=== PATIENT | male | born 1950 | race Caucasian/White ===

== ENCOUNTER 2017-01-09 05:35 | Outpatient (CLI) | payer MEDICARE, OTHER ==
[~2017-01-09] VITALS: Ht 175.3 cm; Wt 96.3 kg
[~2017-01-09 05:35] MED LIST: BENA1TAB3 PO; IBP200T PO
[2017-01-09] MEDS ORDERED: BENA1TAB57 PO (12:12)
== END 2017-01-09 12:17 ==
LOC: PREOP 05:35
PROVIDERS: ATTEND Surgery
DX: Z01.818 Encounter for other preprocedural examination (principal); Z12.11 Encounter for screening for malignant neoplasm of colon; Z86.010 Personal history of colon polyps

== ENCOUNTER 2017-01-11 11:39 | Day surgery (SDC) | payer MEDICARE, OTHER ==
[~2017-01-11] VITALS: Ht 175.3 cm; Wt 96.3 kg
[~2017-01-11 11:39] MED LIST changes: +BENA1TAB57 PO
--- OUTSIDE RECORDS SUMMARY | 2017-01-11 11:50 | XMS REPORT | Clinical Summary ---
Author Author User, [employer] Kaylee Benoit DO, FACP Address Unknown Phone Allergies, Adverse Reactions, Alerts Allergy Name Reaction Description Start Date Severity Status Provider No Known Allergies Kaylee Benoit Conditions or Problems Problem Name Problem Code Onset Date Status Entry Date Provider Comment Standard Description Annotate HYPERTENSION 401.1 Active Kaylee Benoit Benign essential hypertension WEIGHT GAIN, ABNORMAL 783.1 Active Kaylee Benoit Abnormal weight gain OTHER PULMONARY EMBOLISM AND INFARCTION 415.19 Active Kaylee Benoit Other pulmonary embolism and infarction HEALTH SCREENING V70.0 Active Kaylee Benoit Routine general medical examination at a health care facility Medication List Medication Instructions Start Date Stop Date Generic Name NDC Status Provider Patient Instruction LOTENSIN HCT 20-12.5 MG TABS 1 PO DAILY BENAZEPRIL- HYDROCHLOROTHIAZIDE [id number] Active Kaylee Benoit Vital Signs Date Name Value Unit Range Description blood pressure, diastolic - 8462-4 90 mm[Hg] BP walsh blood pressure, systolic - 8480-6 151 mm[Hg] BP sys height E&M - 8302-2 60 [in_us] Bdy height pulse rate E&M - 8867-4 80 /min Heart rate respiratory rate E&M - 9279-1 14 /min Resp rate temperature E&M 98.6 [degF] Body temperature weight E&M - 3141-9 211 [lb_av] Weight Measured Diagnostic Results Date Name Value Unit Range Description Clinical Lists Update: LABS 03-10-14 - Chemistry Estimated Glomerular Filtration Rate (calc) 114 mL/min/1.73m2 glucose, plasma fasting 111 mg/dL sodium, serum 136 mmol/L potassium, serum 4.3 mmol/L urea nitrogen, blood 24 mg/dL creatinine, serum 1.18 mg/dL carbon dioxide, venous blood 22 mmol/L chloride, serum 104 mmol/L calcium, serum 9.5 mg/dL hemoglobin A1C, blood, as % of total hemoglobin 5.6 % Procedures Code Procedure Name Date Entry Date Standard Description [id number] Primo Aquino, (40-64) 21:31:59 CDT
--- OUTSIDE RECORDS SUMMARY | 2017-01-11 11:50 | XMS REPORT | Clinical Summary ---
Author Author User, [employer] Organization Kaylee Benoit DO, FACP Address Unknown Phone Allergies, Adverse Reactions, Alerts Allergy Name Reaction Description Start Date Severity Status Provider No Known Allergies Fatuma Maurer Conditions or Problems Problem Name Problem Code Onset Date Status Entry Date Provider Comment Standard Description Annotate Problems Unknown Active Medication List Medication Instructions Start Date Stop Date Generic Name NDC Status Provider Patient Instruction LOTENSIN HCT 20-12.5 MG TABS 1 PO DAILY BENAZEPRIL- HYDROCHLOROTHIAZIDE [id number] Active Kaylee Benoit Diagnostic Results Date Name Value Unit Range [...]
--- OUTSIDE RECORDS SUMMARY | 2017-01-11 11:50 | XMS REPORT | Continuity of Care Document ---
Author Author [facility] Organization [facility] Address Unknown Phone Unavailable Allergies Active Description Code Type Severity Reaction Onset Reported/Identified Relationship to Patient Clinical Status Yes No Known Allergies Drug Allergy 04/09/2012 Yes No Known Drug Allergies Drug Allergy 04/09/2012 Yes No Known Food Allergies Food Allergy 04/09/2012 Medications Problems Date Dx Coded Attending Type Code Diagnosis Diagnosed By 04/09/2012 Jesus Leyva MD Final 276.1 HYPOSMOLALITY 04/09/2012 Jesus Leyva MD Final 276.8 HYPOPOTASSEMIA 04/09/2012 Jesus Leyva MD Final 285.9 ANEMIA NOS 04/09/2012 Jesus Leyva MD Final 305.00 ALCOHOL ABUSE-UNSPEC 04/09/2012 Jesus Leyva MD Final 401.9 HYPERTENSION NOS 04/09/2012 Jesus Leyva MD Final 415.19 PULMON EMBOL/INFARCT NEC 04/09/2012 Jesus Leyva MD Final 453.42 ACUTE DVT DISTAL LEG 04/09/2012 Jesus Leyva MD Final 488.82 FLU NOV INFL A-RESP NEC 04/09/2012 Jesus Leyva MD Final 518.81 AC RESPIRATORY FAILURE 04/09/2012 Jesus Leyva MD Admitting 786.05 SHORTNESS OF BREATH Procedures Code Description Performed By Performed On 38.7 INTERRUPTION VENA CAVA Sky Ceballos MD 04/10/2012 88.43 PULMONARY ARTERIOGRAM Sky Ceballos MD 04/10/2012 99.10 INJECT THROMBOLYTIC Sky Ceballos MD 04/10/2012 Results Encounters ACCT No. Visit Date/Time Discharge Status Pt. Type Provider Facility Loc./Unit Complaint [id number] 04/09/2012 21:13:00 2012 17:39:00 DIS Inpatient Jesus Leyva MD [facility] [address] [facility]
--- OUTSIDE RECORDS SUMMARY | 2017-01-11 11:50 | XMS REPORT | Clinical Summary ---
Author Author User, [employer] Organization Kaylee Benoit DO, FACP Address Unknown Phone Allergies, Adverse Reactions, Alerts Allergy Name Reaction Description Start Date Severity Status Provider Allergies Unknown Conditions or Problems Problem Name Problem Code Onset Date Status Entry Date Provider Comment Standard Description Annotate Problems Unknown Active Medication List Medication Instructions Start Date Stop Date Generic Name NDC Status Provider Patient Instruction Drug Treatment Unknown - unknown Diagnostic Results Date Name Value Unit Range Description Clinical Lists Update: LABS 03-10-14 - Chemistry glucose, plasma fasting 111 mg/dL calcium, serum 9.5 mg/dL hemoglobin A1C, blood, as % of total hemoglobin 5.6 % chloride, serum 104 mmol/L urea nitrogen, blood 24 mg/dL potassium, serum 4.3 mmol/L carbon dioxide, venous blood 22 mmol/L sodium, serum 136 mmol/L creatinine, serum 1.18 mg/dL Estimated Glomerular Filtration Rate (calc) 114 mL/min/1.73m2 Clinical Lists Update: LABS 09-06-13 - Chemistry potassium, serum 4.5 mmol/L LDL cholesterol, serum 114 mg/dL HDL cholesterol, serum 59 mg/dL carbon dioxide, venous blood 24 mmol/L cholesterol, serum 205 mg/dL chloride, serum 109 mmol/L calcium, serum 9.3 mg/dL urea nitrogen, blood 24 mg/dL protein, total, serum 7.1 g/dL aspartate aminotransferase (SGOT), serum 26 U/L alanine aminotransferase (SGPT), serum 28 U/L bilirubin, serum, total 0.6 mg/dL triglyceride, serum, fasting 160 mg/dL sodium, serum 144 mmol/L cholesterol/HDL ratio, serum, percent 3.5 glucose, plasma fasting 110 mg/dL prostate specific antigen, free, serum 0.3 ng/mL Estimated Glomerular Filtration Rate (calc) 68 mL/min/1.73m2 creatinine, serum 1.15 mg/dL albumin, serum 4.3 g/dL alkaline phosphatase, serum 74 U/L Clinical Lists Update: LABS 09-06-13 - Hematology red blood cell distribution width 11.9 % mean corpuscular volume, RBC 103.9 fL leukocyte count, blood 5.1 10*3/mm3 erythrocyte (RBC) count 4.04 10*6/mm3 hemoglobin, blood 14.1 g/dL platelet count 150 10*3/mm3 hematocrit, blood 42.0 %
[2017-01-11] MEDS ORDERED: NS IV 500 ML 500 ML ONE (11:51)
[2017-01-11] MEDS ORDERED: LIDOCAINE JELLY 2% (XYLOCAINE) 5 ML TUBE MM PRN (12:00)
[2017-01-11] MEDS ORDERED: NS IV 500 ML 500 ML IV SCH (12:00)
[2017-01-11 12:25] VITALS: BP 147/86
--- NOTE | 2017-01-11 13:03 | Progress Note-Pre Operative ---
Pre-Operative Progress Note H&P Reviewed The H&P was reviewed, patient examined and no changes noted. Date Seen by Provider: Jan 11, 2017 Time Seen by Provider: 13:00 Date H&P Reviewed: Jan 11, 2017 Time H&P Reviewed: 13:00 Pre-Operative Diagnosis: hx colon polyp JOSEPH YOUNG MD Jan 11, 2017 1:03 pm
--- NOTE | 2017-01-11 13:03 | Conscious Sedation/ASA ---
Conscious Sedation Pre-Proced Time Reviewed: 13:00 ASA Class: 2 Airway Mallampati Classification: ([place] appropriate class) I. II. III, IV Lungs Heart ASA score ASA 1: a normal healthy patient ASA 2: a patient with a mild systemic disease (mid diabetes, controlled hypertension, obesity ASA 3: a patient with a severe systemic disease that limits activity (angina , COPD, prior Myocardial infarction) ASA 4: a patient with an incapacitating disease that is a constant threat to life (CHF, renal failure) ASA 5: a moribund patient not expected to survive 24 hrs. (ruptured aneurysm) ASA 6: a declared brain patient whose organs are being harvested. For emergent operations, add the letter E after the classification Grade 2 Sedation Plan: Analgesia, Amnesia, Plan communicated to team members, Discussed options with patient/fam, Discussed risks with patient/fam Note The patient is an appropriate candidate to undergo the planned procedure, sedation, and anesthesia. The patient immediately re-assessed prior to indication. JOSEPH YOUNG MD Jan 11, 2017 1:03 pm
[2017-01-11] MEDS ORDERED: ONDANSETRON 4 MG/2 ML (SDV) Z0FRAN IV PRN (13:15)
[2017-01-11] MEDS ORDERED: ACETAMINOPHEN 325 MG TABLET/CAPLET (TYLENOL) PO PRN (13:15)
[2017-01-11] MEDS ORDERED: HYDROcodone/APAP 5 MG/325 MG (LORTAB) TAB PO PRN (13:15)
[2017-01-11] MEDS ORDERED: morphine INJ 10 MG/ML 1ML (SYR OR VIAL) IV PRN (13:15)
[2017-01-11] MEDS ORDERED: MIDAZOLAM 2 MG/2 ML (VERSED) VIAL ONE ×4 (13:55→13:56)
[2017-01-11] MEDS ORDERED: fentaNYL INJECTION 100 MCG/2 ML AMP ONE ×2 (13:55→14:48)
[2017-01-11] MEDS ORDERED: LIDOCAINE JELLY 2% (XYLOCAINE) 5 ML TUBE ONE (13:55)
[2017-01-11] MEDS: fentaNYL INJECTION 100 MCG/2 ML AMP IVP PRN ×4 (14:48→15:02)
[2017-01-11] MEDS: MIDAZOLAM 2 MG/2 ML (VERSED) VIAL IVP PRN ×4 (14:49→15:03)
--- NOTE | 2017-01-11 15:16 | Progress Note-Post Operative ---
Post-Operative Progess Note Surgeon (s)/Digital Content Marketing Manager (s) Surgeon JOSEPH YOUNG MD Digital Content Marketing Manager: none Pre-Operative Diagnosis hx colon polyp Post-Operative Diagnosis chronic stage 1 ext and int hemorrhoids, normal rectum and colon. Procedure & Operative Findings Date of Procedure 01/11/17 Procedure Performed/Findings Colonoscopy. Anesthesia Type CS Estimated Blood Loss Estimated blood loss (mL): minimal Specimens/Packing Specimens Removed none JOSEPH YOUNG MD Jan 11, 2017 3:16 pm
--- NOTE | 2017-01-11 15:18 | Discharge Inst-Surgical ---
D/C Lap Instructions-HECTOR Follow Up 10 years. Activity as tolerated High Fiber Diet 25g or more per day Avoid Alcohol, Caffeine, Spicy [place] and Acid foods. Drink 64 fluid oz or more of fluids per day. Symptoms to Report: Fever over 101 degree F, Nausea/Vomiting If any problems/questions: Contact your physician or go to Emergency Room JOSEPH YOUNG MD Jan 11, 2017 3:18 pm
[2017-01-11 15:25] VITALS: BP 121/76
[2017-01-11 16:00] VITALS: BP 102/77
[2017-01-11 16:15] VITALS: BP 102/77
--- NOTE | 2017-01-12 01:43 | OPERATIVE REPORT ---
DATE OF SERVICE: 01/11/2017 ATTENDING PRIMARY CARE PHYSICIAN: Kaylee Benoit DO PREOPERATIVE DIAGNOSIS: History of colon polyp. POSTOPERATIVE DIAGNOSIS: Chronic stage I external and internal hemorrhoids remainder of the rectum and colon were normal. PROCEDURE: Colonoscopy. SURGEON: Joseph Young MD. ANESTHESIA: Conscious sedation. ESTIMATED BLOOD LOSS: Minimal. FINDINGS: Chronic stage I external and internal hemorrhoids. Prostate gland was palpable and appeared normal. Remainder of the rectum and colon were normal. DISPOSITION: The patient tolerated the procedure well. INDICATION FOR PROCEDURE: The patient is a 66-year-old male referred over to us for a screening colonoscopy. His last colonoscopy was around in 2007, 2 polyps were identified which were benign hyperplastic polyps. He states that he is doing well and tolerating a regular diet and having normal bowel movements. He also does not report any red blood per rectum nor any dark tarry stools. He also does not report any family history of colon cancer. The patient was brought to the endoscopy suite, laid in the left lateral decubitus position. After adequate IV pain and sedating medications and conscious sedation anesthesia, a digital rectal examination was performed. Mild stage I chronic external and internal hemorrhoids were identified, which were not actively edematous or inflamed and no bleeding. Normal sphincter tone was felt and there were no palpable masses. Prostate gland was palpable and appeared normal. The endoscope was then intubated to the anus and rectum and gently insufflated. The endoscope was then advanced to the sigmoid colon where no diverticulosis identified. The endoscope was then advanced to the remainder of the descending, transverse and ascending colon to the cecum. These segments were normal. There were no polyps or any neoplasms identified throughout the colon or rectum. The endoscope was then slowly withdrawn while taking a second look and suctioning residual air with no additional findings. The patient tolerated the procedure well. We will recommend continued medical management with a high fiber diet with at least 30 grams of fiber per day as well as at least 64 fluid ounces of water daily to promote soft stools on a daily basis. On his last colonoscopy in 2007 only hyperplastic polyps were identified, which did not have any malignancy potential. No polyps were identified this time around and he does not need another colonoscopy for normal screening interval of 10 years. Job ID: [id number] DocumentID: [id number] Dictated Date: 01/11/2017 15:16:53 Portable Sawmill Operator Date: 01/12/2017 00:29:28 Dictated By: JOSPEH YOUNG MD
== END 2017-01-11 16:15 | disposition home or self-care (01) ==
LOC: ENDO 11:39
PROVIDERS: ATTEND Surgery
DX: Z12.11 Encounter for screening for malignant neoplasm of colon (principal); Z86.010 Personal history of colon polyps; K64.0 First degree hemorrhoids; I10 Essential (primary) hypertension; Z86.711 Personal history of pulmonary embolism; Z87.891 Personal history of nicotine dependence; Z79.899 Other long term (current) drug therapy